=== PATIENT | female | born 1955 ===

== ENCOUNTER 2018-05-03 22:59 | Emergency (ER) | payer SELFPAY ==
[~2018-05-03] VITALS: Ht 162.6 cm; Wt 100.0 kg
[2018-05-03 23:00] VITALS: BP 140/88
== END 2018-05-04 | disposition left against medical advice (07) ==
LOC: ER 22:59
DX: Z53.21 Procedure and treatment not carried out due to patient leaving prior to being seen by health care provider (principal)